=== PATIENT | male | born 1970 ===

== ENCOUNTER 2024-10-14 13:44 | Outpatient (AMB) | payer OTHER, SELFPAY ==
--- OUTSIDE RECORDS SUMMARY | 2024-10-14 13:46 | XMS_ITS ---
Author Name [facility] Organization Unknown Care Team Organization Name Specialty Phone Email Start Date End Da te [facility] 01/21/2022 11/02/2023
--- NOTE | 2024-10-14 13:48 | A.OFFVIS_ITS ---
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 He has a long history of back pain, which has been managed with various medications over the years, including high doses that have led to adverse effects such as dry mouth. The patient also suffers from insomnia, which he reports has been severe enough to prevent him from sleeping at all, further impacting his quality of life. Currently enrolled in a methadone clinic but states he is trying to wean off. He reports not liking the effects of the medication. During the visit patient hyper focused on being prescribed opioid medications, he was unhappy to be told that this is not something that we offer at this office. Patient did not want to further discuss his pain other than to say that he is not interested in any type of interventional management including injections, nerve blocks, nerve stimulators, spinal cord stimulation or other procedures. - Onset: Chronic, long-standing - Quality: Persistent, severe - Exacerbating factors: Lack of sleep - Impact: Significant interference with daily activities and quality of life - Affect: Reports frustration and distress due to lack of relief - Analgesia: Previously on high doses of medication, currently seeking alternative management - Adverse Effects: Dry mouth - Activities of Daily Living: Severely impacted by pain and insomnia Review of Systems Const Details: - Musculoskeletal: Reports chronic back pain - Neurological: Reports insomnia Physical Exam Exam Exam: General: awake, alert, oriented. Answers questions appropriately. Fully engaged in examination. Skin: warm, dry, intact HEENT: Normocephalic. Hearing intact. Cardiac: External chest normal in appearance. Respiratory: No cough, audible wheezing or stridor. Abdomen: without gross distension. MS: No obvious swelling or deformities. Able to transition from sit to stand unassisted. Ambulates with bilaterally normal heel strike and toe off Neurological: Oriented to person, place, time and situation. Thought process intact. No gait abnormalities appreciated. Psychiatric: Appropriate mood and affect. Good judgment and insight. Vital Signs: Last Vital Signs Pulse 76 10/14/24 13:49 Resp 16 10/14/24 13:49 BP 137/92 H 10/14/24 13:49 Pulse Ox 95 10/14/24 13:49 Oxygen Delivery Method Room Air 10/14/24 13:49 BMI result Body Mass Index 36.1 Assessment & Plan Assessment & Plan (1) Back pain: Code(s): M54.9 - Dorsalgia, unspecified Category: Medical (2) Chronic pain syndrome: Code(s): G89.4 - Chronic pain syndrome Category: Medical Plan The patient was advised that this office specializes in interventional pain management, which includes procedures such as nerve blocks, epidural injections, peripheral nerve stimulation and spinal cord stimulation. These options were presented as alternatives to chronic opioid therapy, which the clinic does not provide. The patient was encouraged to consider these interventions if his pain becomes more severe or if he desires a change in his pain management approach. The patient adamantly refused to discuss interventional management. He repeated ly requested to discuss chronic opioid management, asking where he could be enrolled in a program to receive chronic opioids. Patient was upset to be told that this is something we do not refer for and he would have to research on his own. He was advised to discuss this further with his primary care doctor. Visit was ended abruptly as patient got up and walked out of the room and left the office. Patient was informed and verbally consented to the use of an ambient scribe for clinic note documentation during this visit. Patient Instructions: - Consider interventional pain management options if pain worsens. - Discuss pain management strategies with primary care provider for further guidance. Coding Level of Care Code New Pt Level 4 (96134) Complex EM visit Add On G2211 Diagnoses Back pain M54.9 Chronic pain syndrome G89.4
[2024-10-14 13:49] VITALS: BP 137/92; PULSE 76; RESP 16; O2SAT 95; BMI 36.1
== END 2024-10-14 14:19 | disposition home or self-care (01) ==
PROVIDERS: PCP Internal Medicine; Visit Provider Registered Nurse Emergency
DX: M54.9 Dorsalgia, unspecified (principal); G89.4 Chronic pain syndrome
CPT/HCPCS: 99204

== ENCOUNTER → 2024-10-14 13:44 | Outpatient (BNVA) | payer OTHER, SELFPAY | PROVIDERS: PCP Internal Medicine; Visit Provider Registered Nurse Emergency | DX: M54.50 Low back pain, unspecified (principal); G89.29 Other chronic pain | CPT/HCPCS: 99202 ==